=== PATIENT | female | born 1970 | race African-American/Black ===

== ENCOUNTER 2021-03-26 08:51 | Emergency (ER) | payer OTHER, SELFPAY ==
[2021-03-26 08:58] VITALS: BP 132/75; PULSE 70; RESP 16; TEMP 36.7; O2SAT 99
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
[2021-03-26] MEDS: Acetaminophen 500 MG TAB 1000 MG PO (09:32)
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
[2021-03-26 11:14] VITALS: BP 132/80; PULSE 62; RESP 20; TEMP 36.9; O2SAT 97
== END 2021-03-26 11:32 | disposition home or self-care (01) ==
PROVIDERS: Emergency Provider Physician Assistant
DX: S16.1XXA Strain of muscle, fascia and tendon at neck level, initial encounter (principal); S20.211A Contusion of right front wall of thorax, initial encounter; M79.621 Pain in right upper arm; V47.5XXA Car driver injured in collision with fixed or stationary object in traffic accident, initial encounter; G89.11 Acute pain due to trauma
CPT/HCPCS: 99284; 70450; 71046; 72125; 73060

== ENCOUNTER 2021-04-17 10:25 | Emergency (ER) | payer OTHER, SELFPAY ==
[2021-04-17 10:31] VITALS: BP 127/66; PULSE 78; RESP 16; TEMP 36.7; O2SAT 98
--- NOTE | 2021-04-17 10:38 | W.ED.GENAD ---
Discharge Plan Disposition Patient Disposition: HOME Condition: Stable Discharge Details Clinical Impression: Cellulitis Primary Care Provider: Anglei,Local ED Provider: Newton Newell Home Meds and New Rx's Prescriptions: New sulfamethoxazole-trimethoprim [Bactrim DS] 800-160 mg tablet 1 tab PO BID Qty: 20 RF: 0 Continued albuterol sulfate [Ventolin HFA] 90 mcg/actuation Hfa Aerosol Inhaler 2 inh INHALATION TID RF: 0 Flovent HFA 110 mcg/actuation Hfa Aerosol Inhaler 2 inh INHALATION BID RF: 0 Wexer 2 inh inhalation BID RF: 0 ibuprofen 800 mg Tablet 800 mg PO PRN PRNRF: 0 gabapentin 300 mg Tablet 300 mg PO TID RF: 0 cyclobenzaprine 10 mg tablet 10 mg PO TID PRNQty: 10 RF: 0 Discharge Instructions Instructions: Cellulitis (ED) Additional Instructions: Oral Bactrim as directed for cellulitis. Warm soaks and/or compresses every 2 hours for 20 minutes. You may use topical [id number] hydrocortisone cream for localized irritation as directed, you may also use calamine lotion and/or [place] for the drainage as directed. Please watch for new or worsening symptoms and return to the ER for any concerns. Otherwise I recommend following up with your primary care when you return home to [place]. Medical Decision Making 50-year-old female, [id number], presents for evaluation of left arm infection, irritation that began a few days ago and is currently getting worse. No history of IV drug use. Denies fevers. Clinically she appears well, nontoxic. Based upon her presentation, question of this started out as a localized contact dermatitis but with the dry-cracking skin and scratching at the area looks like it has become secondarily infected. No signs of abscess. Will place on oral Bactrim and recommend topical hydrocortisone cream and/or calamine lotion/[place] for the weeping. Standard discharge and return precautions provided. This documentation was generated using [employer] system, please disregard any oddities of phrase or misspellings. Medical Records Medical records reviewed: Yes I reviewed the patient's medical records. HPI General Mode of arrival: ambulatory. Date/Time Provider Initiated Documentation: 04/17/21 10:31. Limitations to Documentation: no limitations. Information obtained by: patient. HPI Narrative: This is a 50-year-old female, [id number], past medical history of asthma, presenting to the ER for evaluation of a left arm infection. Patient states that initially started as a small bite or irritation from her sweater although now the area has become more red and is draining a primarily clear fluid. She states it is painless at rest but the skin is dry and cracked and with movement this causes pain. She denies any rash elsewhere on her body, fever, numbness, tingling, weakness. Denies any history of IV drug use. She has not tried any [id number] medications for her symptoms. Related Data Home Medications Medication Instructions Recorded Confirmed Flovent HFA 2 inh INHALATION BID 03/26/21 04/17/21 Wexer 2 inh INHALATION BID 03/26/21 04/17/21 albuterol sulfate [Ventolin HFA] 2 inh INHALATION TID 03/26/21 04/17/21 cyclobenzaprine 10 mg PO TID PRN #10 tab 03/26/21 04/17/21 gabapentin 300 mg PO TID 03/26/21 04/17/21 ibuprofen 800 mg PO PRN PRN 03/26/21 04/17/21 sulfamethoxazole-trimethoprim 1 tab PO BID #20 tab 04/17/21 [Bactrim DS] Previous Rx's Medication Instructions Recorded cyclobenzaprine 10 mg PO TID PRN #10 tab 03/26/21 sulfamethoxazole-trimethoprim 1 tab PO BID #20 tab 04/17/21 [Bactrim DS] Allergies Allergy/AdvReac Type Severity Reaction Status Date / Time No Known Allergies Allergy Unverified 04/17/21 10:34 General Stated Complaint: Cellulitis COURTNEY: 4 Review of Systems Constitutional Constitutional: Denies fever(s) Musculoskeletal Musculoskeletal: Denies arthralgias, Denies numbness, Reports stiffness (Because of the dry cracking skin) and Denies tingling Integumentary/Breasts Skin/Breast: Reports rash Neurologic Neurologic: Denies numbness and Denies tingling [facility] Active Problem List Cervical strain (Acute) Contusion (Acute) Cellulitis (Acute) Social History Smoking/Tobacco Use Status: Never Smoking risk assessment performed?: Yes Alcohol Intake: never Drug use: Never Substance use type: does not use Do you feel safe at home: Yes Do you feel safe in your relationship?: Yes Exam Const General: cooperative, healthy appearing, comfortable and no acute distress Orientation: alert and awake [facility] Head: normal to inspection, normocephalic and atraumatic Eyes General: appearance normal, both eyes and all related structures Conjunctivae: conjunctivae normal Neck Neck: normal visual inspection, trachea midline and supple Resp Effort & Inspection: normal respiratory effort and able to speak in complete sentences Cardio Rate: regular rate Rhythm: regular rhythm Skin General skin exam: erythema Neuro General: patient alert, patient awake, moves all extremities and no focal motor deficits Cognition: normal cognition Speech: speech normal Gait: normal gait Sensory Exam: no sensory deficits noted Extrem General: full ROM and capillary refill normal Elbow/forearm/wrist images: 1. Area of mild erythema without warmth or tenderness. There is a small amount of serous fluid centrally and it appears crusted-dry along the edges. There is no honeycombing appearance. There is no induration or fluctuance. No lymphangitic streaking. Full range of motion. No evidence of septic joint Psych Appearance: grossly normal Mental Status: mental status grossly normal Course Vital Signs Vital signs: Vital Signs Temperature 36.7 C 04/17/21 10:31 Pulse 78 04/17/21 10:31 Respiratory Rate 16 04/17/21 10:31 Blood Pressure 127/66 04/17/21 10:31 Pulse Oximetry 98 04/17/21 10:31 Temperature 36.7 C 04/17/21 10:31 Temperature Source Skin 04/17/21 10:31 Pulse 78 04/17/21 10:31 Respiratory Rate 16 04/17/21 10:31 Respiratory Effort Non-Labored 04/17/21 10:31 Blood Pressure 127/66 04/17/21 10:31 Blood Pressure Position Sitting 04/17/21 10:31 Pulse Oximetry 98 04/17/21 10:31 Oxygen Delivery Method Venti Mask 04/17/21 10:31 Oxygen Flow Rate 0 04/17/21 10:31 Pain Level 8 04/17/21 10:31
== END 2021-04-17 11:00 | disposition home or self-care (01) ==
PROVIDERS: Emergency Provider Physician Assistant
DX: L03.114 Cellulitis of left upper limb (principal)
CPT/HCPCS: 99283